=== PATIENT | female | born 1955 | race Caucasian/White ===

== ENCOUNTER 2017-03-17 08:30 | Emergency (ER) | payer BC ==
[2017-03-17] MEDS ORDERED: HYDROcodone/ACETAMIN 5-325 MG* 1 TAB PO ONE (10:31)
[2017-03-17 10:39] VITALS: BP 105/68
--- NOTE | 2017-03-17 11:21 | RAD ---
INDICATION: Left lateral rib pain after a fall COMPARISON: None. TECHNIQUE: 4 views of the left ribs were obtained. FINDINGS: A metallic external marker is noted overlying the left lateral lower ribs. On an oblique view there is questionable cortical discontinuity at the distal most portion of the left ninth rib. The remaining ribs appear to be intact. Limited views demonstrate grossly clear lungs. IMPRESSION: Questionable slightly displaced distal lateral ninth rib fracture.
--- NOTE | 2017-03-17 14:54 | UC ---
Geovani Zavaleta Angela, scribed for Payton Wagner DO on 03/17/17 at 1010 . Back Pain HPI - HPI Summary HPI Summary: This pt is a 61 y/o female presenting to [facility] c/o left flank pain s/p fall 3 days ago (on Friday). Pt reports she was going up the stairs when she stepped on her pajamas and tripped. She states that it was slippery so she fell down 6 steps and hit her ribs and her head. She denies LOC. Pt notes her scalp is sore. Pt denies headache, changes in vision, loud noise in ears, nausea, vomiting, mood changes. She states feeling some dizziness since the fall. Pt notes brain fog but reports she has fibromyalgia in is at baseline. She has had problems with her balance before the fall, which has been unchanged since the fall. Pt states it is painful to breathe, rating her pain 10/10 in severity. She denies SOB, chest pain, abd pain, hematuria, cough, sore throat. Pt has an upcoming US with Dr. Jerry for urinary tract issues. PSHx: bilateral hip replacement (right hip in 2009, left hip in 2011). She states that for the past several months she has felt more clumsy. - History of Current Complaint Chief Complaint: UCGeneralIllness Stated Complaint: RIB INJURY Time Seen by Provider: 03/17/17 09:55 Hx Obtained From: Patient Onset/Duration: Lasting Days, Still Present Timing: Lasting Days Pain Intensity: 10 Pain Scale Used: 0-10 Numeric Back Pain: Is Discrete @ - left flank Aggravating Factor(s): Movement, Walking Alleviating Factor(s): Nothing Associated Signs And Symptoms: Positive: Bruising - right hip. Negative: Weakness, Numbness, Tingling, Abdominal Pain, Bladder Incontinence, Bowel Incontinence - Allergies/Home Medications Allergies/Adverse Reactions: Allergies Allergy/AdvReac Type Severity Reaction Status Date / Time Aspirin AdvReac BRUISING Verified 01/27/15 10:51 ENVIRONMENTAL Allergy EYES WATER Uncoded 01/27/15 10:51 PMH/Surg Hx/FS Hx/Imm Hx Other Endocrine History: DENIES: diabetes Cardiovascular History: Hypertension - Surgical History Surgical History: Yes Surgery Procedure, Year, and Place: BILATERAL HIP REPLACEMENTS, RIGHT 06/2009. LEFT -09/2011, [facility], - Family History Known Family History: Positive: Cardiac Disease, Diabetes, Other - [place]. - Social History Occupation: Employed Full-time Lives: With Family Alcohol Use: Daily Alcohol Amount: 1-2 glasses wine dinner Substance Use Type: None Smoking Status (MU): Never Smoked Tobacco Have You Smoked in the Last Year: No Review of Systems Constitutional: Negative Eyes: Negative - visual changes ENT: Negative Respiratory: Negative Cardiovascular: Negative Gastrointestinal: Other - POS: left flank pain. NEG: abd pain, vomiting, diarrhea Genitourinary: Negative Motor: Negative Neurovascular: Negative Musculoskeletal: Negative Neurological: Other - POS: scalp soreness, dizziness. NEG: headache, mood changes Psychological: Negative All Other Systems Reviewed And Are Negative: Yes Physical Exam Triage Information Reviewed: Yes Appearance: Well-Appearing, Well-Nourished, Pain Distress Vital Signs: Initial Vital Signs Temp 98.6 F 03/17/17 08:38 Pulse 95 03/17/17 08:38 Resp 20 03/17/17 08:38 BP 119/73 03/17/17 08:38 Pulse Ox 98 03/17/17 08:38 Vital Signs Reviewed: Yes Eyes: Positive: Conjunctiva Clear. Negative: Discharge ENT: Positive: Hearing grossly normal, Other: - normal voice. Negative: Muffled /hoarse voice Neck exam: Normal Neck: Positive: Supple Respiratory: Positive: Lungs clear, Normal breath sounds, No respiratory distress, No accessory muscle use Cardiovascular: Positive: RRR, No Murmur Musculoskeletal: Positive: Strength Intact - aox4, strength, sensation and reflexes intact bl, cn 2-12 intact, no cerebellar signs, Other: - tenderness over lower left ribs 8-11 Neurological: Positive: Alert, Muscle Tone Normal, Other: - aox4, strength, sensation and reflexes intact bl, cn 2-12 intact, no cerebellar signs Psychological Exam: Normal Psychological: Positive: Age Appropriate Behavior Skin Exam: Normal Skin: Positive: Other - warm, dry, normal color Diagnostics - Radiology Ribs XR Xray Interpretation: Positive (See Comments) - IMPRESSION: Questionable slightly displaced distal lateral ninth left rib fracture. ED physician has reviewed this radiology report and agrees. Radiology Interpretation Completed By: Radiologist Back Pain Course/Dx - Course Course Of Treatment: Medications reviewed this visit. - Differential Dx/Diagnosis Provider Diagnoses: rib fx, concussion Discharge - Discharge Plan Condition: Stable Disposition: HOME Prescriptions: traMADol TAB* [Ultram*] 50 mg PO Q8H PRN #14 tab MDD 3 TABS PRN Reason: Pain traMADol TAB* [Ultram*] 50 mg PO Q8H PRN #14 tab MDD 3 TABS PRN Reason: Pain Patient Education Materials: Rib Fracture (ED), Concussion (ED), Rib Contusion (ED) Referrals: Maribell James MD [Primary Care Provider] - 3 Days (follow up in 3-5 days) Additional Instructions: Your require brain rest until all symptoms have resolved completely. Once your symptoms have resolved completely, you should re-enter life gradually. If symptoms return with brain stimulation you require more rest. The documentation as recorded by the Geovani patel Angela accurately reflects the service I personally performed and the decisions made by , Payton Wagner DO.
--- NOTE | 2017-03-18 17:06 | UC ---
Progress - Progress Note Progress Note: no change.
== END 2017-03-17 11:55 | disposition home or self-care (01) ==
LOC: UCEAST 08:30
DX: S22.39XA Fracture of one rib, unspecified side, initial encounter for closed fracture (principal); I10 Essential (primary) hypertension; W10.9XXA Fall (on) (from) unspecified stairs and steps, initial encounter; Y92.9 Unspecified place or not applicable; S06.0X9A Concussion with loss of consciousness of unspecified duration, initial encounter
CPT/HCPCS: 81003; 87086; 99212; G0463

== ENCOUNTER 2019-06-29 09:08 | Emergency (ER) | payer BC ==
[2019-06-29 09:20] VITALS: BP 152/86
--- NOTE | 2019-06-29 10:53 | UC ---
Ear Complaint HPI - HPI Summary HPI Summary: 63 yo female presents with b/l ear pain. She tells me that for the last 3 days she has had b/l decreased hearing with ear pain. Yesterday she had an episode of a vertigo described as the room spinning. This made her nauseous. She states she has had issues with vertigo many times in the past. She thinks this episode of vertigo was due to "whatever is going on with her ears". She denies fever, sinus symptoms, sore throat, cough, headache, weakness, numbness, tingling, SOB , chest pain, abdominal pain, dysuria. - History of Current Complaint Chief Complaint: UCEar Stated Complaint: EAR PAIN,DIZZINESS,VOMITING Time Seen by Provider: 06/29/19 10:53 Hx Obtained From: Patient Hx Last Menstrual Period: IUD Onset/Duration: Gradual Onset Severity Initially: Moderate Severity Currently: Moderate Pain Intensity: 5 Pain Scale Used: 0-10 Numeric - Allergies/Home Medications Allergies/Adverse Reactions: Allergies Allergy/AdvReac Type Severity Reaction Status Date / Time aspirin Allergy bruising Verified 06/29/19 09:22 ENVIRONMENTAL Allergy EYES WATER Uncoded 06/29/19 09:22 Home Medications: Home Medications Hydrochlorothiazide TAB* [Hydrodiuril TAB*] 1 tab PO DAILY 06/29/19 [History Confirmed 06/29/19] Metoprolol Tartrate TAB* [Lopressor TAB*] 1 tab PO DAILY 06/29/19 [History Confirmed 06/29/19] Omeprazole 1 tab PO DAILY 06/29/19 [History Confirmed 06/29/19] Ranitidine TAB (NF) [Zantac TAB (NF)] 1 tab PO DAILY 06/29/19 [History Confirmed 06/29/19] buPROPion SR TAB* [Wellbutrin SR TAB*] 1 tab PO 06/29/19 [History] PMH/Surg Hx/FS Hx/Imm Hx Cardiovascular History: Hypertension Psychological History: Anxiety, Depression - Surgical History Surgical History: Yes Surgery Procedure, Year, and Place: BILATERAL HIP REPLACEMENTS, RIGHT 06/2009. LEFT -09/2011, [facility];. - Family History Known Family History: Positive: Cardiac Disease, Diabetes, Other - [place]. - Social History Lives: With Family Alcohol Use: Daily Alcohol Amount: 1-2 glasses wine dinner Substance Use Type: None Smoking Status (MU): Never Smoked Tobacco Have You Smoked in the Last Year: No Review of Systems All Other Systems Reviewed And Are Negative: No Constitutional: Positive: Negative Skin: Positive: Negative Eyes: Positive: Negative ENT: Positive: Ear Ache Respiratory: Positive: Negative Cardiovascular: Positive: Negative Gastrointestinal: Positive: Negative Musculoskeletal: Positive: Negative Neurological: Positive: Other - Dizziness Psychological: Positive: Negative Physical Exam - Summary Physical Exam Summary: GENERAL: NAD. WDWN. No pain distress. SKIN: No rashes, sores, ulcers, masses, lesions. HEENT: Head: AT/NC. Eyes: PERRLA. EOM intact. Conjunctiva clear without inflammation or discharge. Ears: Hearing grossly normal. TMs occluded by brown/black cerumen. Nose: Nasal mucosa pink and moist. NTTP maxillary and frontal sinus. Throat: Posterior oropharynx without exudates, erythema, or tonsillar enlargement. Uvula midline. NECK: Supple. Nontender. FROM CHEST: CTAB. No r/r/w. No accessory muscle use. Breathing comfortably and in no distress. CV: RRR. Pulses intact. Brisk cap refill. ABDOMEN: Soft. NTTP. Bowel sounds present MSK: FROM in B/L UEs and LEs with symmetric strength. NEURO: A&Ox3. CN: II: Peripheral hayes intact. Vision normal. III, IV, : EOMI. No nystagmus. PERRLA. V: Sensations intact and symmetric. Opens mouth and clenches teeth. VII: No facial asymmetry. Forehead wrinkles. Grins, shuts eyes, frowns, puffs cheeks. VIII: Hearing intact to finger rub. IX, X: Swallows and coughs. Uvula midline. XI: Shrugs shoulders. Turns head against resistance. XII : No tongue deviation [id number] are intact. Gait with normal base. Romberg : maintains balance, no pronator drift. Normal speech. No facial drooping. PSYCH: Age appropriate behavior. Triage Information Reviewed: Yes Vital Signs: Initial Vital Signs Temp 98 F 06/29/19 09:18 Pulse 83 06/29/19 09:18 Resp 16 06/29/19 09:18 BP 152/86 06/29/19 09:18 Pulse Ox 98 06/29/19 09:18 Vital Signs Reviewed: Yes Ear Complaint Course/Dx - Course Course Of Treatment: B/L ear irrigation with liquid colace successful. TMs WNL and intact. Pt feels much better, but still having some slight nausea that seems exacerbated by the ear flush - thus she was given zofran in the clinic. --- States she has a long hx of vertigo and nausea and has seen neurology and had imaging done in the past to eval this. Discussed that if she develops a headache, reoccurrence of nausea or dizziness, weakness, or numbness to call 911 or go to the ED immediately. - Differential Dx/Diagnosis Provider Diagnosis: Cerumen impaction Discharge ED - Sign-Out/Discharge Documenting (check all that apply): Patient Departure All imaging exams completed and their final reports reviewed: No Studies - Discharge Plan Condition: Stable Disposition: HOME Prescriptions: Neomyc/Polym/HC 1% OTIC SUSP* [Cortisporin Otic Susp 1%*] 4 drop LEFT EAR BID # 1 btl Patient Education Materials: Cerumen Impaction (ED) Referrals: Maribell James MD [Primary Care Provider] - Additional Instructions: If you develop a fever, shortness of breath, chest pain, new or worsening symptoms - please call your PCP or go to the ED immediately. Your blood pressure was high at todays visit. Please see your primary provider within 4 weeks for recheck and re-evaluation. - Billing Disposition and Condition Condition: STABLE Disposition: Home
[2019-06-29] MEDS ORDERED: Docusate LIQ* 100 MG/10 ML UDC PO ONE (11:12)
[2019-06-29] MEDS ORDERED: Ondansetron ODT TAB* 4 MG SL ONE (12:05)
== END 2019-06-29 12:27 | disposition home or self-care (01) ==
LOC: UCEAST 09:08
DX: H61.23 Impacted cerumen, bilateral (principal); I10 Essential (primary) hypertension; F41.9 Anxiety disorder, unspecified; F32.9 Major depressive disorder, single episode, unspecified; Z96.643 Presence of artificial hip joint, bilateral; Z79.899 Other long term (current) drug therapy; Z88.6 Allergy status to analgesic agent; Z91.09 Other allergy status, other than to drugs and biological substances
CPT/HCPCS: 99211; A9270-GY; G0463